=== PATIENT | male | born 1995 | race Caucasian/White ===

== ENCOUNTER 2021-05-15 01:06 | Emergency (ER) | payer OTHER ==
[2021-05-15 01:23] VITALS: BP 136/78; PULSE 61; TEMP 97.5; BMI 22.4
[2021-05-15] MEDS ORDERED: DIPHTH,PERTUSS(ACELL),TET 0.5 ML DISP.SYRIN IM STA (01:40)
[2021-05-15] MEDS ORDERED: DIPHTH,PERTUSS(ACELL),TET 0.5 ML DISP.SYRIN IM ONE ×2 (01:53→01:56)
== END 2021-05-15 02:09 | disposition home or self-care (01) ==
LOC: FER 01:06
PROC: 0HQ1XZZ Repair Face Skin, External Approach (ICD-10-PCS; principal; 2021-05-15)
DX: S01.81XA Laceration without foreign body of other part of head, initial encounter (principal); W22.8XXA Striking against or struck by other objects, initial encounter
CPT/HCPCS: 99282-25